=== PATIENT | female | born 2000 | race African-American/Black ===

== ENCOUNTER 2024-09-20 16:03 | Outpatient (CLI) | payer OTHER, SELFPAY ==
--- OUTSIDE RECORDS SUMMARY | 2024-09-20 16:06 | XMS_ITS | Clinical Summary ---
Author Organization [facility] ospital Address [address] [place] [address] Care Team Providers Care Collections Assistant Name Role Phone Itz Howard MD Unavailable No, Physician Primary Care Provider [phone] Allergies Active Allergy Reactions Criticality Noted Date Comments Lactose Stomach upset Low 05/19/2018 Medications busPIRone (BUSPAR) 10 mg tabletIndications: Generalized Anxiety Disorder 10 mg 2 (two) times a day 10/28/19 18 Active FLUoxetine (PROzac) 20 mg capsuleIndications :depression 20 mg daily 10/28/19 18 Active OLANZapine (ZyPREXA) 10 mg tablet Take 10 mg by mouth nightly at bedtime. 05/11/19 22 Active cetirizine (ZyrTEC) 10 mg tablet cetirizine 10 mg tablet Active dicyclomine (BENTYL) 10 mg capsule dicyclomine 10 mg capsule Active hydrOXYzine (VISTARIL) 25 mg capsule Take 25 mg by mouth 3 (three) times a day as needed Active ketorolac (TORADOL) 10 mg tablet Take 10 mg by mouth every 6 (six) hours as needed 01/19/20 19 Active risperiDONE (RisperDAL) 2 mg tablet risperidone 2 mg tablet Active SUMAtriptan (IMITREX) 50 mg tabletIndications: Migraine Take 1 tablet (50 mg total) by mouth once as needed for migraine for up to 10 doses May repeat dose once in 2 hours if no relief. Do not exceed 2 doses in 24 hours. 9 tablet 11/18/19 23 Active ondansetron ODT (ZOFRAN-ODT) 4 mg disintegrating tablet Take 1 tablet (4 mg total) by mouth every 8 (eight) hours as needed for nausea or vomiting 20 tablet 11/18/19 23 Active Active Problems Problem Noted Date Diagnosed Date Left-sided chest wall pain 08/18/2020 Mass of soft tissue of chest 08/18/2020 Mild malnutrition 02/23/2019 Anxiety 10/11/2018 Bipolar disorder 10/11/2018 Gastroesophageal reflux disease 04/07/2018 Migraine Resolved Problems Problem Noted Date Diagnosed Date Resolved Date Abscess of buttock 10/14/2021 2 Assessment & Plan (10/14/2021 1:45 PM CDT): Likely this was just a coincidental garden variety skin abscess, correctly treated, healing nicely. No intervention at this time. If this becomes recurrent she was encouraged to come back to the office. Immunizations Immunization Administration Dates Next Due Influenza, Quadrivalent, Spl it, Preservative Free, Intramuscular 02/23/2019 Medical History Medical History Date Comments Depression Anemia Family History Medical History Relation Name Comments Cancer Father Diabetes Maternal Grandmother Cancer Paternal Grandmother Relation Name Status Comments Father Maternal Grandmother Mother Alive Paternal Grandmother Social History Tobacco Use Types Packs/Day Years Used Date Smoking Tobacco: Never Smokeless Tobacco: Never Alcohol Use Standard Drinks/Week Comments Not Currently 0 (1 standard drink = 0.6 oz pur e alcohol) PHQ-2 Answer Date Recorded PHQ-2 Score 3 02/22/2019 Personal Safety Answer Date Recorded Have you ever been in or are you currently in a harmful physical or emotional relationship or is someone making you feel afraid or unsafe? Denies 11/17/2022 Comments No Sex and Gender Information Value Date Recorded Sex Assigned at Not on file Legal Sex Female 8:51 AM LINK FABRIC MACHINE OPERATOR Gender Identity Not on file Sexual Orientation Straight 09/04/2021 3: 33 PM CDT Obstetrics History Last Filed Vital Signs Vital Sign Reading Time Taken Comments Blood Pressure 112/64 01/25/2024 3:21 PM LINK FABRIC MACHINE OPERATOR Pulse 97 01/25/2024 3:21 PM LINK FABRIC MACHINE OPERATOR Temperature 37 C (98.6 F) 01/25/2024 3:21 PM LINK FABRIC MACHINE OPERATOR Respiratory Rate 19 01/25/2024 3:21 PM LINK FABRIC MACHINE OPERATOR Oxygen Saturation 100% 01/25/2024 3:21 PM LINK FABRIC MACHINE OPERATOR Inhaled Oxygen Concentration - - Weight 74.8 kg (165 lb) 01/25/2024 3:21 PM LINK FABRIC MACHINE OPERATOR Height 167.6 cm (5' 6) 01/25/2024 3:21 PM LINK FABRIC MACHINE OPERATOR Body Mass Index 26.63 01/25/2024 3:21 PM LINK FABRIC MACHINE OPERATOR Plan of Treatment Health Maintenance Due Date Last Done Comments Cervical Cancer Screening 2000 Hepatitis C Screening 2000 Chlamydia and Gonorrhea (GC/ CT) Screening 07/07/2017 07/07/2016 Regular Well Visit/Exam 18-64 02/19/2018 Depression Screening 02/23/2020 02/22/2019 Covid-19 Vaccine (3 2023-2 5 season) 2023 05/09/2020, 04/18/2020 Influenza Vaccine (#1) 2024 , 02/23/2019, 02/26/2012, Additional history exists DTaP/Tdap/Td Vaccine (8 - Td or Tdap) 12/10/2032 12/10/2022, 09/15/2010, 10/08/2005, Additional history exists Hepatitis B Screening Completed 2000 , 2000, 2000 Pneumococcal vaccine <65 Completed 002, 2000, 2000, Additional history exists Varicella Vaccines Completed 10/08/2005, 02/25/2001 HPV Vaccines Completed 08/31/2014, 04/16, 10/07/2012 Procedures Procedure Name Priority Date/Time Associated Diagnosis Comments N. GONORRHOEAE/C. TRACHOMATIS AMPLIFICATION TEST Timed 07/07/2016 9:37 PM CDT from Last 3 Months or Most Recently Relevant to Health Maintenance Results * N. gonorrhoeae/C. trachomatis amplification test (07/07/2016 9:37 PM CDT) Report Final Report: Negative for: Chlamydia trachomatis rRNA Negative for: Neisseria gonorrhoeae rRNA [facility] Urine 07/07/2016 9:37 PM CDT 07/07/2016 10:14 PM CDT [facility]ative [facility] - 07/08/2016 1:10 PM CDT Testing performed by the Gen-Probe Tigris APTIMA Combo 2 Assay. This nucleic acid amplification test (NAAT) detects ribosomal RNA (rRNA) from Chlamydia trachomatis and Neisseria gonorrhoeae using target capture,and Medical/Surgery Registered Nurse-Mediated Amplification (TMA). This test is approved by the [place] Food and Drug Administration for endocervical, vaginal, and male urethral swab specimens, in addition to male and female urine specimens. The performance characteristics for these specimen types have been verified by the [facility].The performance characteristics of this assay for pharyngeal and rectal specimens collected from cervical swab collection devices have been validated and verified by the [facility]. Verification studies support a lack of cross reactivity with other Neisseria species considered normal oropharyngeal bacterial he. Rectal swab specimens containing excess stool may be inhibitory and result in false negatives for Chlamydia trachomatis or Neisseria gonorrhoeae. The performance characteristics of this test have not been evaluated in women or individuals less than 16 years of age. Christy Og MD LAB MICROBIOLOGY - GEN ERAL ORDERABLES Final Result [facility] Department [place] [address] from Last 3 Months or Most Recently Relevant to Health Maintenance Insurance [facility] [place] [address] [place] [address] [place] [address] Advance Directives For more information, please contact: [phone] * Full Code (Latest Code Status on File) Date Activated Date Inactivated Comments 02/22/2019 3:51 PM 02/23/2019 7:21 PM Care Teams Collections Assistant Relationship Specialty Start Date End Date No, Physician PCP - General 10/22/23 Itz Howard MD [address] [address] Consulting Physician Psychiatry 10/16/21
--- OUTSIDE RECORDS SUMMARY | 2024-09-20 16:06 | XMS_ITS | Clinical Summary ---
Author Organization [facility] Address [address] [place] [address] Care Team Providers Care Internet Marketing Director Name Role Phone Provider, Unknown Primary Care Provider Unavaila ble Allergies Active Allergy Reactions Criticality Noted Date Comments Lactose Intolerance (Gi) Diarrhea Medium 12/23/2018 Medications busPIRone (BUSPAR) 10 MG Tablet Take 10 mg by mouth 2 times daily. 8 Active omeprazole (PRILOSEC) 40 MG CAPSULE DELAYED RELEASE Take 1 Cap by mouth daily. 90 Cap 3 9 Active Additional Information Patient not taking.Reported on 11/24/2022 traZODone (DESYREL) 50 MG Tablet Take 50 mg by mouth nightly. 2 9 Active medroxyPROGEST ERone Acetate (DEPO-PROVERA IM) by Intramuscular route Every 3 months. Active lamoTRIgine (LAMICTAL) 25 MG Tablet Take 1 Tab by mouth daily. 9 Active hydrOXYzine (VISTARIL) 25 MG Capsule Take 25 mg by mouth 3 times daily as needed. Active FLUoxetine (PROZAC) 20 MG Capsule Take 20 mg by mouth daily. 9 Active ketorolac (TORADOL) 10 MG Tablet Take 1 Tab by mouth every 6 hours as needed for Moderate or more severe pain. 20 Tab 9 Active Additional Information Patient not taking.Reported on 11/24/2022 lidocaine (LIDODERM) 5 % Patch 1 Patch by Transdermal route every 24 hours. 30 Patch 2 Active Additional Information Patient not taking.Reported on 02/26/2022 ketorolac (TORADOL) 10 MG Tablet Take 1 Tablet by mouth every 6 hours as needed for Mild or more severe pain or Moderate or more severe pain. 15 Tablet 2 Active Additional Information Patient not taking.Reported on 11/24/2022 naproxen (NAPROSYN) 500 MG Tablet Take 1 Tablet by mouth 2 times daily (with meals). 60 Tablet 2 Active Additional Information Patient not taking.Reported on 11/24/2022 traMADol (ULTRAM) 50 MG TabletIndicati ons:Contusion of coccyx Take 1-2 Tablets by mouth every 6 hours as needed for Moderate or more severe pain. 20 Tablet 2 Active Additional Information Patient not taking.Reported on 11/24/2022 docusate sodium (COLACE) 100 MG CapsuleIndicat ions:Internal hemorrhage Take 1 Capsule by mouth 2 times daily. 180 Capsule 3 2 Active Additional Information Patient not taking.Reported on 02/26/2022 ketorolac (TORADOL) 10 MG Tablet Take 1 Tablet by mouth every 6 hours as needed for Moderate or more severe pain. 20 Tablet 2 Active Additional Information Patient not taking.Reported on 02/26/2022 LORAZEPAM PO Take by mouth. Ac tive amoxicillin-cl avulanate (AUGMENTIN) 875-125 MG Tablet 3 Active methylPREDNISo lone (MEDROL DOSPACK) 4 MG Tablet Therapy Pack 3 Active OLANZAPINE PO Take by mouth. A ctive Norgestimate-e thinyl estradiol (Estarylla) 0.25-35 MG-MCG Tablet Take 1 Tablet by mouth daily. Active Active Problems Problem Noted Date Diagnosed Date Anxiety 10/11/2018 Depression 10/11/2018 Insomnia 10/11/2018 Bipolar disorder 10/11/2018 Iron deficiency anemia 10/11/2018 Gastroesophageal reflux disease 04/07/2018 Resolved Problems Problem Noted Date Diagnosed Date Resolved Date Nausea 04/07/2018 12/23/2018 Diarrhea 04/07/2018 10/11/2018 Increased urinary frequency 04/07/2018 10/11/2018 Immunizations Immunization Administration Dates Next Due Covid-19, Mrna, Lnp-s, Pf, 3 0 Mcg/0.3 Ml Dose, Rick-sucrose ([employer] waggoner top) 04/14/2021 DTAP VACCINE 10/08/2005, 2,2000,06/17,2000 HEP B/HIB Combined Vaccine 2000 Hepatitis A, Pediatric, Unsp ecified Formulation 09/13/2009,10/08/2005 Hepatitis B Vaccine, Pediatric/adolescent 2000,2000 Hib Vaccine,unspecified Formulation 06/02/2001,0 2000,2000 Human Papillomavirus (HPV) 9 -valent Vaccine 08/31/2014 Human Papillomavirus Vaccine (HPV), quadrivalent 05/04/2013,10/07/2012 Inactivated Polio Vaccine 10/08/2005,,2000,04/22 Influenza Vaccine Nasal 12/19/2010 Influenza, Seasonal, Injecta ble, Undefined 02/26/2012 MMR Vaccine 06/02/2001 MMRV 10/08/2005 Meningococcal MCV4O 05/13/2016,08/14/2011 Pneumococcal Vaccine Peds - 7 Valent ,2000,2000,04/22 TDAP Vaccine 09/15/2010 Varicella Vaccine Live 02/25/2001 Family History Medical History Relation Name Comments Cancer Father colon No Known Problems Mother Relation Name Status Comments Father Mother Alive Social History Tobacco Use Types Packs/Day Years Used Date Smoking Tobacco: Never Smokeless Tobacco: Never Tobacco Cessation:Counseling Given: No Alcohol Use Standard Drinks/Week Comments No 0 (1 standard drink = 0.6 oz pur e alcohol) PHQ-2 Answer Date Recorded PHQ-2 Score 0 10/14/2018 Sexually Active Control Partners Comments Yes Injection Male Comments No Sex and Gender Information Value Date Recorded Sex Assigned at Not on file Legal Sex Female 12:04 AM CDT Gender Identity Not on file Sexual Orientation Not on file Last Filed Vital Signs Vital Sign Reading Time Taken Comments Blood Pressure 114/70 07/30/2023 3:23 PM CDT Pulse 84 07/30/2023 3:23 PM CDT Temperature 36.9 C (98.4 F) 07/30/2023 3:23 PM CDT Respiratory Rate 14 07/30/2023 3:23 PM CDT Oxygen Saturation 98% 07/30/2023 3:23 PM CDT Inhaled Oxygen Concentration - - Weight 98.4 kg (217 lb) 03/26/2022 4:47 PM ENGINEERING FACULTY MEMBER Height 167.6 cm (5' 6) 03/26/2022 4:47 PM ENGINEERING FACULTY MEMBER Body Mass Index 35.02 03/26/2022 4:47 PM ENGINEERING FACULTY MEMBER Plan of Treatment Health Maintenance Due Date Last Done Comments Hepatitis C Virus (HCV) Screening 2000 Pap Smear 02/19/2021 SARS-COV-2 Immunization ( season) 2023 04/14/2021, 05/09/2020, 04/18/2020 Influenza Immunization (#1) 10/16/202412/16, 02/23/2019, 02/26/2012, Additional history exists DTaP/Tdap/Td Immunization (8 - Td or Tdap) 12/10/2032 12/10/2022, 09/15/2010, 10/08/2005, Additional history exists Respiratory Syncytial Virus (RSV) Immunization (Adult) (1 - 1-dose 75+ series) 02/19/2075 Hepatitis B Immunization Completed 001, 2000, 2000 Pneumococcal Immunization Combined Aged Out 06/02/2001, 2000, 2000, Additional history exists No longer eligible based on patient's age to complete this topic Human Papillomavirus (HPV) Immunization Completed 08/31/2014, 05/04/2013, 10/07/2012 Meningococcal Immunization (ACWY) Completed 05/13/2016, 08/14/2011 Rotavirus Immunization Aged Out No lo nger eligible based on patient's age to complete this topic Insurance [employer] Care Teams Internet Marketing Director Relationship Specialty Start Date End Date Provider, Unknown UNKNOWN PCP - General 08/03/23 Arif Hab[facility] Psychiatry 10/11/18
--- OUTSIDE RECORDS SUMMARY | 2024-09-20 16:06 | XMS_ITS | Clinical Summary ---
Author Organization [facility] Address [address] [place] [address] Care Team Providers Care School Vocational Educator Name Role Phone Unavailable Primary Care Provider Unavailabl e Encounters Date Type Department Care Team Description 08/30/2024 External Device Data [facility] ABSTRACTION Provider, Abstract 08/29/2024 External Device Data [facility] Provider, Abstract 08/01/2024 External Device Data [facility] Provider, Abstract 07/06/2024 External Device Data [facility] [place] Provider, Abstract 07/06/2024 External Device Data [facility] [place]STRACTION Provider, Abstract 07/05/2024 External Device Data [facility] ABSTRACTION Provider, Abstract 07/04/2024 External Device Data [facility] ABSTRACTION Provider, Abstract from Last 3 Months Social History Tobacco Use Types Packs/Day Years Used Date Smoking Tobacco: Never Assessed Comments Unknown Sex and Gender Information Value Date Recorded Sex Assigned at Not on file Legal Sex Female 9:51 AM CDT Gender Identity Not on file Sexual Orientation Not on file Plan of Treatment Health Maintenance Due Date Last Done Comments CERVICAL CANCER SCREENING 02/19/2021 HPV/Cotest (21-29) 02/19/2021 PAP SMEAR 02/19/2021 COVID-19 Vaccine (2023-2 5 season) 2023 04/14/2021, 05/09/2020, 04/18/2020 INFLUENZA VACCINE (#1) 2024 , 02/23/2019, 02/26/2012, Additional history exists DTAP/TDAP/TD VACCINES (8 - T d or Tdap) 12/10/2032 12/10/2022, 09/15/2010, 10/08/2005, Additional history exists HEPATITIS B VACCINES Completed 2000, 2000, 2000 HPV VACCINES Completed 08/31/2014, 04/16, 10/07/2012 Insurance [place] [id number] Member Subscriber Plan / Payer (Ef fective 2023-Present) Name:Meño Almanzar Relation to Subscriber:Self Name:Meño Almanzar Payer ID:[id number] (NAIC) Group ID:[id number] Type:PPO Address: [facility] [id number] [place] [id number]
[2024-09-20 16:34] LABS: Hematocrit 36.0 % (37.0-47.0); Hemoglobin 12.0 g/dL (12.0-15.0); Mean Corpuscular HGB Conc 33.3 g/dl (32-36); Mean Corpuscular Hemoglobin 29.6 pg (26-34); Mean Corpuscular Volume 88.9 fl (80-100); Platelet Count Result 397 k/mm3 (150-375); Red Blood Count 4.05 M/mm3 (4.2-5.4); White Blood Count 7.7 K/mm3 (4.5-10.0)
[2024-09-20 17:44] LABS: Iron 59 ug/dL (37-170)
[2024-09-20 17:46] LABS: Alanine Aminotransferase 13 U/L (6-35); Albumin Level 4.5 g/dL (3.5-5.1); Alkaline Phosphatase 57 U/L (38-126); Anion Gap 5 mmol/L (4-12); Aspartate Amino Transferase 28 U/L (14-36); Bilirubin,Total 0.3 mg/dL (0.2-1.3); Blood Urea Nitrogen 7 mg/dL (7-17); Calcium 9.0 mg/dL (8.4-10.2); Carbon Dioxide 26 mmol/L (22-30); Chloride 103 mmol/L (98-107); Estimated Glomerular Filt Rate > 60; Glucose 85 mg/dL (65-110); Magnesium 2.0 mg/dL (1.6-2.3); Potassium 3.7 mmol/L (3.4-5.0); Sodium 134 mmol/L (137-145); Total Protein 7.8 g/dL (6.3-8.2)
[2024-09-20 17:55] LABS: Percent Iron Saturation 15 % (20-50)
[2024-09-20 18:20] LABS: Thyroid Stimulating Hormone Reflex 1.140 uIU/mL (0.465-4.68)
[2024-09-20 18:41] LABS: Vitamin B12 626.0 pg/mL (239-931)
== END 2024-09-20 16:04 | disposition home or self-care (01) ==
LOC: ANHLAB 16:04
PROVIDERS: PCP Nurse Practitioner Family; Visit Provider Nurse Practitioner Family
DX: M79.10 Myalgia, unspecified site (principal); R53.83 Other fatigue; G47.10 Hypersomnia, unspecified; R06.83 Snoring
CPT/HCPCS: 36415; 80053; 82306; 82607; 83540; 83550; 83735; 84443; 85027

== ENCOUNTER 2024-10-10 08:16 | Outpatient (CLI) | payer OTHER, SELFPAY ==
--- OUTSIDE RECORDS SUMMARY | 2024-10-10 08:19 | XMS_ITS | Clinical Summary ---
Author Organization [facility] ospital Address [address] [place] [address] Care Team Providers Care Life Science Research Assistant Name Role Phone Itz Howard MD Unavailable No, Physician Primary Care Provider [phone] Allergies Active Allergy Reactions Criticality Noted Date [...] on file Legal Sex Female 8:51 AM SALES REPRESENTATIVE WIRE ROPE Gender Identity Not on file Sexual Orientation Straight 09/04/2021 3: 33 PM CDT Obstetrics History Last Filed Vital Signs Vital Sign Reading Time Taken Comments Blood Pressure 112/64 01/25/2024 3:21 PM SALES REPRESENTATIVE WIRE ROPE Pulse 97 01/25/2024 3:21 PM SALES REPRESENTATIVE WIRE ROPE Temperature 37 C (98.6 F) 01/25/2024 3:21 PM SALES REPRESENTATIVE WIRE ROPE Respiratory Rate 19 01/25/2024 3:21 PM SALES REPRESENTATIVE WIRE ROPE Oxygen Saturation 100% 01/25/2024 3:21 PM SALES REPRESENTATIVE WIRE ROPE Inhaled Oxygen Concentration - - Weight 74.8 kg (165 lb) 01/25/2024 3:21 PM SALES REPRESENTATIVE WIRE ROPE Height 167.6 cm (5' 6) 01/25/2024 3:21 PM SALES REPRESENTATIVE WIRE ROPE Body Mass Index 26.63 01/25/2024 3:21 PM SALES REPRESENTATIVE WIRE ROPE Plan of Treatment Health Maintenance Due Date [...] trachomatis rRNA Negative for: Neisseria gonorrhoeae rRNA [facility] Urine 07/07/2016 9:37 PM CDT 07/07/2016 10:14 PM CDT Narrative [facility] - 07/08/2016 1:10 PM CDT Testing performed by the Gen-Probe Tigris APTIMA Combo 2 Assay. This nucleic acid amplification test (NAAT) detects ribosomal RNA (rRNA) from Chlamydia trachomatis and Neisseria gonorrhoeae using target capture,and Trestle Mainternance Laborer-Mediated Amplification (TMA). This test is approved by the [place] Food and Drug Administration for endocervical, vaginal, and male urethral swab specimens, in addition to male and female urine specimens. The performance characteristics for these specimen types have been verified by the [facility].The performance characteristics of this assay for pharyngeal and rectal specimens collected from cervical swab collection devices have been validated and verified by the [facility]. Verification studies support a lack [...] - GEN ERAL ORDERABLES Final Result [facility] Department [place] [address] from Last 3 Months or Most Recently Relevant to Health Maintenance Insurance [facility] [place] [address] [place] [address] Advance Directives For more information, please contact: [phone] * Full Code (Latest Code Status on File) Date Activated Date Inactivated Comments 02/22/2019 3:51 PM 02/23/2019 7:21 PM Care Teams Life Science Research Assistant Relationship Specialty Start Date End Date No, Physician PCP - General 10/22/23 Itz Howard MD [address] [address] Consulting Physician Psychiatry 10/16/21
--- OUTSIDE RECORDS SUMMARY | 2024-10-10 08:19 | XMS_ITS | Clinical Summary ---
Author Organization [facility] Address [address] [place] [address] Care Team Providers Care Nurse Obgyn Name Role Phone Unavailable Primary Care Provider [...] HPV VACCINES Completed 08/31/2014, 04/16, 10/07/2012 Insurance [facility] [employer] PPO [id number] Member Subscriber Plan / Payer (Ef fective 2023-Present) Name:Meño Almanzar Relation to Subscriber:Self Name:Meño Almanzar Payer ID:[id number] (NAIC) Group ID:[id number] Type:PPO Address: [facility] [address] [place] [id number]
--- OUTSIDE RECORDS SUMMARY | 2024-10-10 08:19 | XMS_ITS | Clinical Summary ---
Author Organization [facility] Address [address] [place] [address] Care Team Providers Care Assembler Utility Buildings Name Role Phone Provider, Unknown Primary Care [...] Pf, 3 0 Mcg/0.3 Ml Dose, Rick-sucrose ([employer] waggoner top) 04/14/2021 DTAP VACCINE 10/08/2005, 2,2000,06/17,2000 [...] 98.4 kg (217 lb) 03/26/2022 4:47 PM VENDING MANAGER Height 167.6 cm (5' 6) 03/26/2022 4:47 PM VENDING MANAGER Body Mass Index 35.02 03/26/2022 4:47 PM VENDING MANAGER Plan of Treatment Health Maintenance Due Date [...] complete this topic Insurance [employer] Care Teams Assembler Utility Buildings Relationship Specialty Start Date End Date Provider, Unknown UNKNOWN PCP - General 08/03/23 [facility] 10/11/18
[2024-10-12 15:08] VITALS: BMI 27.4
--- NOTE | 2024-10-12 15:08 | P.SLEEP_ITS ---
Sleep Study - Home Unattended Date of Study: 10/10/24 Ordering Provider: Gisel Andrews APRN Interpreting Provider: Dana Gomez DO Home Sleep Study Type: Watch PAT Height: 1.65 m Weight: 74.843 kg Body Mass Index: 27.4 Neck Circumference (inches): 15 Williams: 13 Reason for Sleep Study Daytime hypersomnia Sleep History The patient is a 24-year-old female that had a sleep study ordered for evaluation of sleep apnea. The patient admits to snoring loudly, excessive daytime sleepiness, unwanted behaviors during sleep, trouble falling asleep and trouble maintaining sleep. She denies interruptions in breathing while asleep. She denies choking or gasping at night. She does have trouble breathing on her back. She does have morning headaches. She does have a dry or sore mouth / throat in the morning. He denies nocturnal heartburn. She urinates twice throughout the night. She does have difficulty returning to sleep if she wakes up throughout the night. She denies any hypnotic or sedative use. She denies feeling anxious about sleep. She does feel tired or sleepy during the day. She does feel tired in the morning. She does have the urge to fall asleep during the day. She denies feeling drowsy while driving. She denies sleep paralysis, cataplexy and hypnagogic/ hypnopompic hallucinations. She does clench or grind her teeth. She does kick or jerk her legs excessively. She denies having a restless feeling in her legs. She goes to bed at 9:00 p.m. on work days and at 10:00 p.m. on her days off. It takes her 2 hours to fall asleep on work days and 3 hours on her days off. She gets 6 hours of sleep on work days and 8 hours on her days. Her sleep is somewhat restorative on days off. She denies taking any planned naps. She does act out her dreams. She denies sleep walking. She denies consuming any caffeinated beverages throughout the day. She denies tobacco and alcohol use. She denies exercising on a regular basis. [facility] Past Medical History Medical History Headache Anxiety Anemia Allergies Family History Family History Father Colon cancer diagnosis at age 47 and at 47 due to colon cancer Mother Diabetes mellitus Hypertension Grandparent Hypertension Cerebrovascular accident Social History Social History Smoking status: Never smoker Alcohol intake: never Substance use: never Substance use type: does not use Do You Feel Safe in your Home?: Yes Lack of Transportation: No Lack of Food: Never True Current Housing: I Have Housing Concerned About Future Housing: No Difficulty Paying Gas/Electric Bills: No Difficulty Paying for Meds: No Currently Unemployed: No Education: High School Diploma/GED Difficulty w/ Childcare or Family Care: No Living arrangements: with family Occupation/Education: occupation Additional occupation/education comments: Works at [employer] Gender identity (if verbalized by the patient): Female Medications Home Medications ?Medication ?Instructions ?Recorded ?Confirmed ?Type levonorgestrel 17.5 mcg/24 hr (up 1 device intrauterin e ONCE 08/09/24 09/20/24 History to 5 yrs) 19.5mg intrauterine device (Kyleena) biotin 5 mg tablet 5 mg PO DAILY 09/20/2409/20 History cholecalciferol (vitamin D3) 25 25 mcg PO DAILY 09/20/24 History mcg (1,000 unit) capsule magnesium oxide 250 mg PO DAILY 09/20/2408/09 History ferrous sulfate 325 mg (65 mg 325 mg PO .every other d ay #90 tabs 09/21/24 Rx iron) tablet (Feosol) Sleep Procedure The sleep study was completed using BURLESQUICEOUST a technically adequate device with seven channels: peripheral arterial tone, actigraphy, body position, snore, respiratory movement, pulse oximetry, sleep staging, and heart rate. Prior to using the device, the patient received verbal and written instructions for its application and was provided with the help desk phone number for additional telephonic instruction with 24-hour availability of qualified personnel to answer questions. The study was scored using CMS guidelines. Sleep Architecture The total recording time is 7 hrs, 41 min. The total sleep time is 5 hrs, 35 min. Sleep latency is 46 minutes. REM latency is 52 minutes. The patient had 8 episodes of waking. Sleep architecture shows 18.5% deep sleep, 61.1% light sleep, and (as % Total Sleep Time) showed NREM (Light 61.1%; Deep 18.5%), and a 20.4% stage REM. The patient spent 3.6% of total sleep time in the supine position. Sleep efficiency was 72.67. Respiratory Analysis The overall AHI (pAHI 4%:) is 2.3. The overall AHI (pAHI 3%:) is 3.3. The central AHI is 0.0. The AHI was 3.5 in NREM and 2.7 in REM sleep. The AHI was N/A in Supine and 2.8 in Non-supine sleep. Percent of Surinder Tejeda respirations is 0.0. Oximetry Data The oxygen desaturation index (ABELINO 4%:) is 1.6. The mean saturation is 97%, and the lowest saturation is 85%. Time spent with saturation < 88% is 0.0 minutes. Snoring Profile Snoring average intensity is 42 dB. The patient snored above 45 decibels for 51.9 minutes, 15.5% of sleep time. Cardiac Profile The average pulse rate is 79 beats per minutes. The lowest pulse rate is 52 bpm. The highest pulse rate reported is 131 bpm. Suspected Afib total duration is 0:04:42, (h:m:sec). The longest Afibevent duration is 0:00:56. A suspected arrhythmia flagged in the sleep report does not necessarily imply an arrhythmia condition is present, but rather suggests that further investigation should be considered. A-Fib events < 60 seconds may be artifact. Premature beats occur 0.1 per minute. Assessment and Plan Assessment and Plan (1) Excessive daytime sleepiness: Code(s): G47.19 - Other hypersomnia Status: Acute Assessment and Plan: The patient had an overall AHI of 2.3 with desaturation down to 85%. This is not consistent with sleep disordered breathing. The patient mentioned dream enactment behavior in her sleep history. Further evaluation is warranted due to possible safety issues. I recommend that the patient have a polysomnogram with RBD montage for further evaluation. Data The data obtained during this sleep study is adequate for interpretation. Certification This sleep study has been reviewed by a board certified sleep medicine physician.
== END 2024-10-11 10:23 | disposition home or self-care (01) ==
LOC: ANHCSM 08:17
PROVIDERS: PCP Nurse Practitioner Family; Visit Provider Nurse Practitioner Family
DX: G47.19 Other hypersomnia (principal); R06.83 Snoring; R53.83 Other fatigue
CPT/HCPCS: 95800

== ENCOUNTER 2024-10-24 06:26 | Emergency (ER) | payer OTHER, SELFPAY ==
--- NOTE | ~2024-10-24 | CT_ITS ---
CT ABDOMEN AND PELVIS WITHOUT CONTRAST Clinical History: hematuria, sharp ab pain Comparison: None Technique: Unenhanced axial images lung bases to symphysis pubis Coronal, sagittal reformats CT images acquired with automatic exposure control for dose reduction DLP: 212 mGy-cm Findings: Without intravenous contrast, sensitivity for detecting visceral parenchymal abnormalities decreased. Lung bases: Clear. Visualized heart and pericardium: Unremarkable. Liver: Unremarkable. Gallbladder: Unremarkable. Spleen: Unremarkable. Pancreas: Unremarkable. Adrenal glands: Unremarkable. Kidneys: Right kidney- No hydronephrosis. No renal stones. Left kidney- No hydronephrosis. No renal stones. Distal esophagus/stomach: Unremarkable. Small bowel loops: Normal caliber and wall thickness. Colon: Normal caliber and wall thickness. Normal RLQ appendix. Nodes: No enlarged nodes. Peritoneum: No ascites. No free intraperitoneal air. Urinary bladder: Wall thickening but underdistended. Uterus: IUD. Adnexa: No masses. Bones: No acute bony abnormality. Soft tissues: Unremarkable. Unopacified abdominal aorta: No aneurysmal dilatation. IMPRESSION: 1. Minimal if any hydronephrosis right kidney but no stone or obstruction noted. 2. Cystitis not excluded. 3. Otherwise without acute abnormality noted. Reviewed, dictated and finalized at location R. IMPRESSION: 1. Minimal if any hydronephrosis right kidney but no stone or obstruction note d. 2. Cystitis not excluded. 3. Otherwise without acute abnormality noted.
--- OUTSIDE RECORDS SUMMARY | 2024-10-24 06:28 | XMS_ITS | Clinical Summary ---
Author Organization [facility] Address [address] [place] [address] Care Team Providers Care Check Examiner Name Role Phone Itz [place] MD Unavailable No, Physician Primary Care Provider [phone] Allergies Active Allergy Reactions Criticality Noted Date [...] on file Legal Sex Female 8:51 AM NURSE ORTHO Gender Identity Not on file Sexual Orientation Straight 09/04/2021 3: 33 PM CDT Obstetrics History Last Filed Vital Signs Vital Sign Reading Time Taken Comments Blood Pressure 112/64 01/25/2024 3:21 PM NURSE ORTHO Pulse 97 01/25/2024 3:21 PM NURSE ORTHO Temperature 37 C (98.6 F) 01/25/2024 3:21 PM NURSE ORTHO Respiratory Rate 19 01/25/2024 3:21 PM NURSE ORTHO Oxygen Saturation 100% 01/25/2024 3:21 PM NURSE ORTHO Inhaled Oxygen Concentration - - Weight 74.8 kg (165 lb) 01/25/2024 3:21 PM NURSE ORTHO Height 167.6 cm (5' 6) 01/25/2024 3:21 PM NURSE ORTHO Body Mass Index 26.63 01/25/2024 3:21 PM NURSE ORTHO Plan of Treatment Health Maintenance Due Date [...] trachomatis rRNA Negative for: Neisseria gonorrhoeae rRNA [facility] Urine 07/07/2016 9:37 PM CDT 07/07/2016 10:14 PM CDT Narrative [facility] - 07/08/2016 1:10 PM CDT Testing performed by the Gen-Probe Tigris APTIMA Combo 2 Assay. This nucleic acid amplification test (NAAT) detects ribosomal RNA (rRNA) from Chlamydia trachomatis and Neisseria gonorrhoeae using target capture,and Data Systems Analyst-Mediated Amplification (TMA). This test is approved by the [place] Food and Drug Administration for endocervical, vaginal, and male urethral swab specimens, in addition to male and female urine specimens. The performance characteristics for these specimen types have been verified by the [facility].The performance characteristics of this assay for pharyngeal and rectal specimens collected from cervical swab collection devices have been validated and verified by the [facility]. Verification studies support a lack [...] - GEN ERAL ORDERABLES Final Result [facility] Department [place] [address] from Last 3 Months or Most Recently Relevant to Health Maintenance Insurance [facility] [place] [address] [place] [address] Advance Directives For more information, please contact: [phone] * Full Code (Latest Code Status on File) Date Activated Date Inactivated Comments 02/22/2019 3:51 PM 02/23/2019 7:21 PM Care Teams Check Examiner Relationship Specialty Start Date End Date No, Physician PCP - General 10/22/23 Itz [place] MD [address] [address] Consulting Physician Psychiatry 10/16/21
--- OUTSIDE RECORDS SUMMARY | 2024-10-24 06:28 | XMS_ITS | Clinical Summary ---
Author Organization [facility] Address [address] [place] [address] Care Team Providers Care Headhunter Name Role Phone Unavailable Primary Care Provider [...] 02/19/2021 HPV/Cotest (21-29) 02/19/2021 PAP SMEAR 02/19/2021 INFLUENZA VACCINE (#1) 2024 , 02/23/2019, 02/26/2012, Additional history exists COVID-19 Vaccine (2024-03 6 season) 2024 04/14/2021, 05/09/2020, 04/18/2020 DTAP/TDAP/TD VACCINES (8 - T d or Tdap) 12/10/2032 12/10/2022, 09/15/2010, 10/08/2005, Additional history exists HEPATITIS B VACCINES Completed 2000, 2000, 2000 HPV VACCINES Completed 08/31/2014, 04/16, 10/07/2012 Insurance [facility] OPTIONS PPO [id number] Member Subscriber Plan / Payer (Ef fective 2023-Present) Name:Meño Almanzar Relation to Subscriber:Self Name:Meño Almanzar Payer ID:[id number] (NAIC) Group ID:[id number] Type:PPO Address: [facility] [id number] [place] [id number]
[2024-10-24 06:34] VITALS: BP 128/82; PULSE 89; RESP 16; TEMP 36.9; O2SAT 100
[2024-10-24 06:45] LABS: BEDSIDEPREGUCG Negative (Negative)
[2024-10-24 06:52] LABS: Add Urine Microscopic? YES; Appearance Urine Cloudy (Clear); Glucose Urine UA Negative (Negative); Leukocyte Esterase Ur 2+ LEU/UL (Negative); Nitrate Urine Negative (Negative); Specific Grav Ur 1.014 (1.001-1.035)
[2024-10-24 07:00] VITALS: BP 111/74; PULSE 84; RESP 17; O2SAT 100
[2024-10-24 07:10] VITALS: BP 114/80; PULSE 79; RESP 14; O2SAT 100
--- NOTE | 2024-10-24 07:36 | ED.GENADULT ---
HPI - General Adult General Chief complaint: Urogenital-Female Stated complaint: i have a severe uti Time Seen by Provider: 10/24/24 06:55 History of Present Illness HPI narrative: 24-year-old female presenting to the emergency department for evaluation for urinary symptoms that started a few days ago. Patient had worsening pain with urination and did notice some blood in her urine last night. Patient does have a prior history of kidney infection but has no prior history of ureteral calculi. Patient states the pain has suprapubic but does radiate to her lateral abdomen worse on the right. Patient states she did noticed blood in her urine states she is not are menstrual cycle so she does feel that bleeding is urinary rather than vaginal. Patient denies any other significant past medical history. Patient declined a medications for pain control. Related Data Home Medications ?Medication ?Instructions ?Recorded ?Confirmed ?Last Taken ?Type levonorgestrel 17.5 mcg/24 hr (up 1 device intrauterine ONCE 08/09/24 09/20/24 Unknown History to 5 yrs) 19.5mg intrauterine device (Kyleena) biotin 5 mg tablet 5 mg PO DAILY 09/20/24 09/20/24 Unknown History cholecalciferol (vitamin D3) 25 25 mcg PO DAILY 09/20/24 09/20/24 Unknown History mcg (1,000 unit) capsule magnesium oxide 250 mg PO DAILY 09/20/24 09/20/24 Unknown History Allergies Allergy/AdvReac Type Severity Reaction Status Date / Time No Known Allergies Allergy Verified 10/24/24 07:47 Review of Systems Review of Systems: All systems reviewed & are unremarkable except as noted in HPI and below PMFSH Past Medical History Medical History Headache Anxiety Anemia Allergies Family History Family History Father Colon cancer diagnosis at age 47 and at 47 due to colon cancer Mother Diabetes mellitus Hypertension Grandparent Hypertension Cerebrovascular accident Social History Social History Smoking status: Never smoker Alcohol intake: never Substance use: never Substance use type: does not use Do You Feel Safe in your Home?: Yes Lack of Transportation: No Lack of Food: Never True Current Housing: I Have Housing Concerned About Future Housing: No Difficulty Paying Gas/Electric Bills: No Difficulty Paying for Meds: No Currently Unemployed: No Education: High School Diploma/GED Difficulty w/ Childcare or Family Care: No Living arrangements: with family Occupation/Education: occupation Additional occupation/education comments: Works at [employer] Gender identity (if verbalized by the patient): Female Exam Narrative: APPEARANCE: Well appearing, no pain, no distress, well-nourished. HEAD: normocephalic, atraumatic. EYES: PERRLA/EOMI, conjunctivae clear. NOSE: Normal no drainage EARS:TMS clear with good light reflex. THROAT: Pharynx clear, no exudate. NECK: Supple. No adenopathy, no masses. RESPIRATORY: Airway patent, respirations nonlabored. Clear to auscultation bilaterally, no rales, rhonchi, wheezing. CARDIOVASCULAR: Regular rate and rhythm without murmurs rubs or gallops. ABDOMINAL: Right CVA tenderness to palpation, suprapubic tenderness to palpation MUSCULOSKELETAL: Moves all extremities. Strength/ROM intact, No edema, No calf tenderness. NEURO: Alert. Cranial nerves II through XII intact. Good gait. Good coordination SKIN: Warm, dry. Normal Color Course Vital Signs Vital signs: Vital Signs Temperature 98.4 F 10/24/24 06:34 Pulse Rate 89 10/24/24 06:34 Respiratory Rate 16 10/24/24 06:34 Blood Pressure 128/82 10/24/24 06:34 Pulse Oximetry 100 10/24/24 06:34 Oxygen Delivery Room Air 10/24/24 06:34 Temperature 98.4 F 10/24/24 06:34 Pulse Rate 84 10/24/24 08:45 Respiratory Rate 16 10/24/24 08:45 Blood Pressure 126/68 10/24/24 08:45 Pulse Oximetry 98 10/24/24 08:45 Oxygen Delivery Room Air 10/24/24 06:34 Medical Decision Making MDM Narrative Medical decision making narrative: 24-year-old female presents to the emergency department for evaluation for urinary symptoms and lower abdominal pain. Urine was consistent with a urinary tract infection but also had 51-100 red blood cells. With CVA tenderness was concern for possible ureteral calculi. CT scan without contrast was ordered. Patient was treated with p.o. antibiotics along with p.o. Pyridium. CT scan was negative for ureteral calculi. Patient will be discharged home with Pyridium for pain control and antibiotics for urinary tract infection. All questions concerns were addressed patient was well-appearing at time of discharge. Differential Diagnosis Differential Diagnosis: Vaginal bleeding, hematuria, urinary tract infection, ureteral calculi, appendicitis, colitis, diverticulitis Vital Signs Vital Signs: Vital Signs Temperature 98.4 F 10/24/24 06:34 Pulse Rate 89 10/24/24 06:34 Respiratory Rate 16 10/24/24 06:34 Blood Pressure 128/82 10/24/24 06:34 Pulse Oximetry 100 10/24/24 06:34 Oxygen Delivery Room Air 10/24/24 06:34 Temperature 98.4 F 10/24/24 06:34 Pulse Rate 84 10/24/24 08:45 Respiratory Rate 16 10/24/24 08:45 Blood Pressure 126/68 10/24/24 08:45 Pulse Oximetry 98 10/24/24 08:45 Oxygen Delivery Room Air 10/24/24 06:34 Lab Data Lab results reviewed: Yes I reviewed the patient's lab results. Labs: Lab Results 10/24/24 10/24/24 Range/Units 06:37 06:43 Urine Color Yellow (Yellow) Urine Appearance Cloudy H (Clear) Urine pH 7.5 (5.0-9.0) Ur Specific [place] 1.014 (1.001-1.035) Urine Protein 2+ H (Negative) mg/dL Urine Glucose (UA) Negative (Negative) mg/dL Urine Ketones Negative (Negative) mg/dL Ur Blood (Man) 2+ H (Negative) Urine Nitrate Negative (Negative) Urine Bilirubin Negative (Negative) Urine Urobilinogen 1.0 (<2.0) mg/dL Leukocyte Esterase Rfl 2+ H (Negative) ERIK/UL Urine RBC 51-100 H (0-2) /hpf Urine WBC 51-100 H (0-3) /hpf Ur Squamous Epith Cells None seen (Few) /hpf Urine Bacteria 2+ H /hpf Urine Casts 3-5 POC Urine HCG, Qual Negative (Negative) Imaging Data Radiologist's impression: Impressions Abdomen/Pelvis CT 10/24/24 08:17 IMPRESSION: 1. Minimal if any hydronephrosis right kidney but no stone or obstruction noted. 2. Cystitis not excluded. 3. Otherwise without acute abnormality noted. Discharge Plan Discharge Clinical Impression: Urinary tract infection Patient Disposition: Home Condition: Stable Instructions: Antibiotic Form, Urinary Tract Infection in Women (ED) Additional Instructions: Antibiotic as directed until completed. Tylenol and ibuprofen for pain control. Pyridium as directed for urinary symptoms. Have close follow-up with your primary care physician. If you have any worsening symptoms then please call or return to the emergency department. Patient Language: Tajik Prescriptions: New phenazopyridine [Pyridium] 100 mg tablet 100 mg PO TID PRN (Reason: pain) Qty: 6 0RF cephalexin 500 mg capsule 500 mg PO Q8H 7 Days Qty: 21 0RF No Action Kyleena 17.5 mcg/24 hr (5 yrs) 19.5 mg intrauterine device 1 device intrauterine ONCE Rx Instructions: as a single dose cholecalciferol (vitamin D3) 25 mcg (1,000 unit) capsule 25 mcg PO DAILY biotin 5 mg tablet 5 mg PO DAILY magnesium oxide 250 mg magnesium tablet 250 mg PO DAILY ferrous sulfate [Feosol] 325 mg (65 mg iron) tablet 325 mg PO .every other day Qty: 90 0RF Follow-up/Referrals: Gisel Andrews, GINETTE [Primary Care Provider, Family Practice] Stand Alone Forms: Work/School Release IP
[2024-10-24] MEDS: CEPHALEXIN 500 MG CAPSULE PO (07:48)
[2024-10-24] MEDS: PHENAZOPYRIDINE HCL 100 MG TABLET 200 MG PO (07:48)
--- OUTSIDE RECORDS SUMMARY | 2024-10-24 08:26 | XMS_ITS | Clinical Summary ---
Author Organization [facility] Address [address] [place] [address] Care Team Providers Care Butcher Chicken And Fish Name Role Phone Provider, Unknown Primary Care [...] Pf, 3 0 Mcg/0.3 Ml Dose, Rick-sucrose (Curse waggoner top) 04/14/2021 DTAP VACCINE 10/08/2005, 2,2000,06/17,2000 [...] 98.4 kg (217 lb) 03/26/2022 4:47 PM COMMERCIAL PEST CONTROL REPRESENTATIVE Height 167.6 cm (5' 6) 03/26/2022 4:47 PM COMMERCIAL PEST CONTROL REPRESENTATIVE Body Mass Index 35.02 03/26/2022 4:47 PM COMMERCIAL PEST CONTROL REPRESENTATIVE Plan of Treatment Health Maintenance Due Date Last Done Comments Hepatitis C Virus (HCV) Screening 2000 Pap Smear 02/19/2021 Influenza Immunization (#1) 10/16/202412/16, 02/23/2019, 02/26/2012, Additional history exists SARS-COV-2 Immunization (2024- season) 2024 04/14/2021, 05/09/2020, 04/18/2020 DTaP/Tdap/Td Immunization (8 - Td or Tdap) [...] complete this topic Insurance OON Care Teams Butcher Chicken And Fish Relationship Specialty Start Date End Date Provider, Unknown UNKNOWN PCP - General 08/03/23 [facility] 10/11/18
--- OUTSIDE RECORDS SUMMARY | 2024-10-24 08:26 | XMS_ITS | Clinical Summary ---
Author Organization [facility] Address [address] [place] [address] Care Team Providers Care Manager Retail Name Role Phone Itz [place] MD Unavailable No, Physician Primary Care Provider [phone] Allergies Active Allergy Reactions Criticality Noted Date [...] on file Legal Sex Female 8:51 AM PERSONAL ASSISTANT Gender Identity Not on file Sexual Orientation Straight 09/04/2021 3: 33 PM CDT Obstetrics History Last Filed Vital Signs Vital Sign Reading Time Taken Comments Blood Pressure 112/64 01/25/2024 3:21 PM PERSONAL ASSISTANT Pulse 97 01/25/2024 3:21 PM PERSONAL ASSISTANT Temperature 37 C (98.6 F) 01/25/2024 3:21 PM PERSONAL ASSISTANT Respiratory Rate 19 01/25/2024 3:21 PM PERSONAL ASSISTANT Oxygen Saturation 100% 01/25/2024 3:21 PM PERSONAL ASSISTANT Inhaled Oxygen Concentration - - Weight 74.8 kg (165 lb) 01/25/2024 3:21 PM PERSONAL ASSISTANT Height 167.6 cm (5' 6) 01/25/2024 3:21 PM PERSONAL ASSISTANT Body Mass Index 26.63 01/25/2024 3:21 PM PERSONAL ASSISTANT Plan of Treatment Health Maintenance Due Date [...] trachomatis rRNA Negative for: Neisseria gonorrhoeae rRNA [facility] Urine 07/07/2016 9:37 PM CDT 07/07/2016 10:14 PM CDT Narrative [facility] - 07/08/2016 1:10 PM CDT Testing performed by the Gen-Probe Tigris APTIMA Combo 2 Assay. This nucleic acid amplification test (NAAT) detects ribosomal RNA (rRNA) from Chlamydia trachomatis and Neisseria gonorrhoeae using target capture,and Pharmacy Cashier-Mediated Amplification (TMA). This test is approved by the [place] Food and Drug Administration for endocervical, vaginal, and male urethral swab specimens, in addition to male and female urine specimens. The performance characteristics for these specimen types have been verified by the [facility].The performance characteristics of this assay for pharyngeal and rectal specimens collected from cervical swab collection devices have been validated and verified by the [facility]. Verification studies support a lack [...] - GEN ERAL ORDERABLES Final Result [facility] Department [place] [address] from Last 3 Months or Most Recently Relevant to Health Maintenance Insurance [facility] [place] [address] [address] [place] [address] Advance Directives For more information, please contact: [phone] * Full Code (Latest Code Status on File) Date Activated Date Inactivated Comments 02/22/2019 3:51 PM 02/23/2019 7:21 PM Care Teams Manager Retail Relationship Specialty Start Date End Date No, Physician PCP - General 10/22/23 Itz [place] MD [address] [address] Consulting Physician Psychiatry 10/16/21
--- OUTSIDE RECORDS SUMMARY | 2024-10-24 08:26 | XMS_ITS | Clinical Summary ---
Author Organization [facility] Address [address] [place] [address] Care Team Providers Care Alining Inspector Name Role Phone Unavailable Primary Care Provider [...] HPV VACCINES Completed 08/31/2014, 04/16, 10/07/2012 Insurance [facility] OPTIONS PPO [id number] Member Subscriber Plan / Payer (Ef fective 2023-Present) Name:Meño Almanzar Relation to Subscriber:Self Name:Meño Almanzar Payer ID:[id number] (NAIC) Group ID:[id number] Type:PPO Address: [facility] [id number] [place] [id number]
[2024-10-24 08:45] VITALS: BP 126/68; PULSE 84; RESP 16; O2SAT 98
== END 2024-10-24 08:45 | disposition home or self-care (01) ==
PROVIDERS: Emergency Medicine; Emergency Provider Emergency Medicine; PCP Nurse Practitioner Family
DX: N39.0 Urinary tract infection, site not specified (principal); D64.9 Anemia, unspecified; Z97.5 Presence of (intrauterine) contraceptive device
CPT/HCPCS: 74176; 81001; 81025; 87077; 87086; 87186; 99284; A9270

== ENCOUNTER 2024-10-26 13:27 | Outpatient (CLI) | payer OTHER, SELFPAY ==
--- OUTSIDE RECORDS SUMMARY | 2024-10-26 15:13 | XMS_ITS | Clinical Summary ---
Author Organization [facility] Address [address] [place] [address] Care Team Providers Care Hand Wood Sander Name Role Phone Provider, Unknown Primary Care [...] Pf, 3 0 Mcg/0.3 Ml Dose, Rick-sucrose (Guidefitter waggoner top) 04/14/2021 DTAP VACCINE 10/08/2005, 2,2000,06/17,2000 [...] 98.4 kg (217 lb) 03/26/2022 4:47 PM FINANCIAL BUSINESS ANALYST Height 167.6 cm (5' 6) 03/26/2022 4:47 PM FINANCIAL BUSINESS ANALYST Body Mass Index 35.02 03/26/2022 4:47 PM FINANCIAL BUSINESS ANALYST Plan of Treatment Health Maintenance Due Date [...] complete this topic Insurance OON Care Teams Hand Wood Sander Relationship Specialty Start Date End Date Provider, Unknown UNKNOWN PCP - General 08/03/[address] [facility] 10/11/18
--- OUTSIDE RECORDS SUMMARY | 2024-10-26 15:13 | XMS_ITS | Clinical Summary ---
Author Organization [facility] Address [address] [place] [address] Care Team Providers Care Pharmacist Aide Name Role Phone Unavailable Primary Care Provider [...] HPV VACCINES Completed 08/31/2014, 04/16, 10/07/2012 Insurance [facility] OPTIONS PPO [id number] Member Subscriber Plan / Payer (Ef fective 2023-Present) Name:Meño Almanzar Relation to Subscriber:Self Name:Meño Almanzar Payer ID:[id number] (NAIC) Group ID:[id number] Type:PPO Address: [facility] [id number] [place] [id number]
--- OUTSIDE RECORDS SUMMARY | 2024-10-26 15:13 | XMS_ITS | Clinical Summary ---
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 Gender Identity Not on file Sexual Orientation Straight 09/04/2021 3: 33 PM CDT Obstetrics History Last Filed Vital Signs Vital Sign Reading Time Taken Comments Blood Pressure 112/64 01/25/2024 3:21 PM MIGRATORY GAME BIRD BIOLOGIST Pulse 97 01/25/2024 3:21 PM MIGRATORY GAME BIRD BIOLOGIST Temperature 37 C (98.6 F) 01/25/2024 3:21 PM MIGRATORY GAME BIRD BIOLOGIST Respiratory Rate 19 01/25/2024 3:21 PM MIGRATORY GAME BIRD BIOLOGIST Oxygen Saturation 100% 01/25/2024 3:21 PM MIGRATORY GAME BIRD BIOLOGIST Inhaled Oxygen Concentration - - Weight 74.8 kg (165 lb) 01/25/2024 3:21 PM MIGRATORY GAME BIRD BIOLOGIST Height 167.6 cm (5' 6) 01/25/2024 3:21 PM MIGRATORY GAME BIRD BIOLOGIST Body Mass Index 26.63 01/25/2024 3:21 PM MIGRATORY GAME BIRD BIOLOGIST Plan of Treatment Health Maintenance Due Date Last Done Comments Cervical Cancer Screening 2000 Hepatitis C Screening 2000 Chlamydia and Gonorrhea (GC/ CT) Screening 07/07/2017 07/07/2016 Regular Well Visit/Exam 18-64 02/19/2018 Depression Screening 02/23/2020 02/22/2019 Covid-19 Vaccine (3 2024- 6 season) 2024 05/09/2020, 04/18/2020 Influenza Vaccine (#1) 2024 , [...] trachomatis rRNA Negative for: Neisseria gonorrhoeae rRNA [facility] Urine 07/07/2016 9:37 PM CDT 07/07/2016 10:14 PM CDT N[facility]ative [facility] - 07/08/2016 1:10 PM CDT Testing performed by the Gen-Probe [facility] APTIMA Combo 2 Assay. This nucleic acid amplification test (NAAT) detects ribosomal RNA (rRNA) from Chlamydia trachomatis and Neisseria gonorrhoeae using target capture,and Engineer Specialist-Mediated Amplification (TMA). This test is approved by the [place] Food and Drug Administration for endocervical, vaginal, and male urethral swab specimens, in addition to male and female urine specimens. The performance characteristics for these specimen types have been verified by the [facility].The performance characteristics of this assay for pharyngeal and rectal specimens collected from cervical swab collection devices have been validated and verified by the [facility]. Verification studies support a lack [...] - GEN ERAL ORDERABLES Final Result [facility] [place] [address] from Last 3 Months or Most Recently Relevant to Health Maintenance Insurance [facility] [place] [address] [place] [address] Advance Directives For more information, please contact: [phone] * Full Code (Latest Code Status on File) Date Activated Date Inactivated Comments 02/22/2019 3:51 PM 02/23/2019 7:21 PM Care Teams Replenishment Merchandising Associate Relationship Specialty Start Date End Date No, Physician PCP - General 10/22/23 Itz Howard MD [address] [address] Consulting Physician Psychiatry 10/16/21
--- NOTE | 2024-11-10 12:11 | WPDHOLTEREM ---
Holter/Event Monitor Holter/Event Monitor Date of procedure: 10/26/24 Holter/Event Procedure: 3-7 Day Holter Monitor Indications: Palpitations Conclusion: 1. 7 days event holter monitor on 10/26/24. 2. Underlying rhythm is sinus rhythm. HR range 27-157 bpm; average HR 85 bpm. HR at 27 bpm was on 10/29/24 at 1:46 am. HR at 157 bpm was on 11/02/24 at 8:58 am. 3. There are rare premature supraventricular complexes, rare supraventricular couplets, and rare supraventricular triplets. No supraventricular tachycardia. 4. There are rare premature ventricular complexes. No ventricular tachycardia. 5. No significant pauses greater than 3 seconds. He had an episode of 2nd degree AV block, type I at 27 bpm as described above. 6. Patient reports 14 episodes of symptoms of heart racing, shortness of breath, lightheadedness, irregular beats, chest pain which demonstrates sinus rhythm, HR range 79-124 with 1 episode with PAC's.
== END 2024-10-26 13:28 | disposition home or self-care (01) ==
LOC: ANHCARD 13:29
PROVIDERS: PCP Nurse Practitioner Family; Visit Provider Nurse Practitioner Family
DX: R00.2 Palpitations (principal)
CPT/HCPCS: 93242

== ENCOUNTER 2025-01-05 16:02 | Outpatient (CLI) | payer OTHER, SELFPAY ==
--- OUTSIDE RECORDS SUMMARY | 2025-01-05 16:04 | XMS_ITS | Clinical Summary ---
Author Organization [facility] Address [address] [place] [address] Care Team Providers Care Parking Lot Attendant Name Role Phone Unavailable Primary Care Provider Unavailabl e Encounters Date Type Department Care Team Description 12/05/2024 External Device Data [facility] ABSTRACTION Provider, Abstract 10/31/2024 External Device Data [facility] ABSTRACTION Provider, Abstract [...] 02/23/2019, 02/26/2012, Additional history exists COVID-19 Vaccine (2024-2 6 season) 2024 04/14/2021, 05/09/2020, 04/18/2020 DTAP/TDAP/TD VACCINES (8 - T d or Tdap) 12/10/2032 12/10/2022, 09/15/2010, 10/08/2005, Additional history exists HEPATITIS B VACCINES Completed 2000, 2000, 2000 HPV VACCINES Completed 08/31/2014, 04/16, 10/07/2012 Insurance [facility] OPTIONS PPO [id number]
--- OUTSIDE RECORDS SUMMARY | 2025-01-05 16:04 | XMS_ITS | Clinical Summary ---
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 Gender Identity Not on file Sexual Orientation Straight 09/04/2021 3: 33 PM CDT Last Filed Vital Signs Vital Sign Reading Time Taken Comments Blood Pressure 112/64 01/25/2024 3:21 PM DRAG OUT WORKER Pulse 97 01/25/2024 3:21 PM DRAG OUT WORKER Temperature 37 C (98.6 F) 01/25/2024 3:21 PM DRAG OUT WORKER Respiratory Rate 19 01/25/2024 3:21 PM DRAG OUT WORKER Oxygen Saturation 100% 01/25/2024 3:21 PM DRAG OUT WORKER Inhaled Oxygen Concentration - - Weight 74.8 kg (165 lb) 01/25/2024 3:21 PM DRAG OUT WORKER Height 167.6 cm (5' 6) 01/25/2024 3:21 PM DRAG OUT WORKER Body Mass Index 26.63 01/25/2024 3:21 PM DRAG OUT WORKER Plan of Treatment Health Maintenance Due Date Last Done Comments Cervical Cancer Screening 2000 Hepatitis C Screening 2000 Chlamydia and Gonorrhea (GC/ CT) Screening 07/07/2017 07/07/2016 Regular Well Visit/Exam 18-64 02/19/2018 Depression Screening 02/23/2020 02/22/2019 Covid-19 Vaccine (2024-03 6 season) 2024 05/09/2020, 04/18/2020 Influenza Vaccine [...] trachomatis rRNA Negative for: Neisseria gonorrhoeae rRNA [facility] Urine 07/07/2016 9:37 PM CDT 07/07/2016 10:14 PM CDT [facility]ative [facility] - 07/08/2016 1:10 PM CDT Testing performed by the Gen-Probe [employer] APTIMA Combo 2 Assay. This nucleic acid amplification test (NAAT) detects ribosomal RNA (rRNA) from Chlamydia trachomatis and Neisseria gonorrhoeae using target capture,and Record Tabulating Clerk-Mediated Amplification (TMA). This test is approved by the [place] Food and Drug Administration for endocervical, vaginal, and male urethral swab specimens, in addition to male and female urine specimens. The performance characteristics for these specimen types have been verified by the [facility].The performance characteristics of this assay for pharyngeal and rectal specimens collected from cervical swab collection devices have been validated and verified by the [facility]. Verification studies support [...] - GEN ERAL ORDERABLES Final Result [facility] Department [place] [address] from Last 3 Months or Most Recently Relevant to Health Maintenance Insurance [facility] Advance Directives For more information, please contact: [phone] * Full Code (Latest Code Status on File) Date Activated Date Inactivated Comments 02/22/2019 3:51 PM 02/23/2019 7:21 PM Care Teams Factory Manager Relationship Specialty Start Date End Date No, Physician PCP - General 10/22/23 Itz Howard MD [address] [address] Consulting Physician Psychiatry 10/16/21
[2025-01-05 16:27] LABS: Hematocrit 34.7 % (37.0-47.0); Hemoglobin 11.6 g/dL (12.0-15.0); Immature Granulocyte Percent A 0.4 % (0-0.5); Lymphocytes Absolute Auto 3.06 K/mm3 (0.9-3.2); Mean Corpuscular HGB Conc 33.4 g/dl (32-36); Mean Corpuscular Hemoglobin 29.8 pg (26-34); Mean Corpuscular Volume 89.2 fl (80-100); Nucleated Red Blood Cells Absolute Auto 0.000 K/mm3 (0.0-0.012); Nucleated Red Blood Cells Perc 0.0 % (0.0-0.2); Platelet Count Result 463 k/mm3 (150-375); Red Blood Count 3.89 M/mm3 (4.2-5.4); White Blood Count 9.7 K/mm3 (4.5-10.0)
[2025-01-05 16:39] LABS: Iron 83 ug/dL (37-170)
[2025-01-05 16:41] LABS: Alanine Aminotransferase 16 U/L (6-35); Albumin Level 4.5 g/dL (3.5-5.1); Alkaline Phosphatase 51 U/L (38-126); Anion Gap 9 mmol/L (4-12); Aspartate Amino Transferase 19 U/L (14-36); Bilirubin,Total 0.3 mg/dL (0.2-1.3); Blood Urea Nitrogen 7 mg/dL (7-17); Calcium 8.9 mg/dL (8.4-10.2); Carbon Dioxide 26 mmol/L (22-30); Chloride 101 mmol/L (98-107); Estimated Glomerular Filt Rate > 60; Glucose 98 mg/dL (65-110); Potassium 3.8 mmol/L (3.4-5.0); Sodium 136 mmol/L (137-145); Total Protein 7.9 g/dL (6.3-8.2)
[2025-01-05 16:48] LABS: Percent Iron Saturation 24 % (20-50)
== END 2025-01-05 16:03 | disposition home or self-care (01) ==
LOC: ANHLAB 16:03
PROVIDERS: PCP Nurse Practitioner Family; Visit Provider Nurse Practitioner Family
DX: D50.9 Iron deficiency anemia, unspecified (principal)
CPT/HCPCS: 36415; 80053; 83540; 83550; 85025